=== PATIENT | female | born 1955 | race Caucasian/White ===

== ENCOUNTER → 2017-07-31 09:21 | Outpatient (CLI) | payer OTHER, SELFPAY ==
[2017-07-31 10:04] LABS: Absolute Lymphocyte Count 1.24 X10^3/ul (0.83-4.51); Absolute Neutrophil Count 4.6 X10^3/uL (2.0-7.7); Basophil# 0.03 X10^3/uL; Basophil% 0.4 % (0-1); Eosinophil# 0.12 X10^3/uL; Eosinophils% 1.8 % (0-5); Hematocrit 43.7 % (37-47); Hemoglobin 14.7 g/dl (12.0-15.0); Lymphocyte # 1.24 X10^3/ul (4.0); Lymphocyte % 18.3 % (19-41); Mean Corp Hgb Conc 33.6 g/gl (32-36); Mean Corpuscular Hgb 31.9 pg (27.0-32.0); Mean Corpuscular Volume 94.8 fL (81-99); Mean Platelet Vol. 9.1 fl (6.2-12.0); Monocyte# 0.76 X10^3/uL; Monocyte% 11.2 % (0-10); Neutrophil % 68.2 % (47-70); Platelet Count 266 K/mm3 (150-450); RBC Distribution Width CV 13.4 % (11.6-14.6); RBC Distribution Width SD 46.2 fl (35.1-43.9); Red Blood Count 4.61 M/mm3 (4.2-5.4); White Blood Count 6.8 K/mm3 (4.4-11.0)
[2017-07-31 10:05] LABS: POSITIVE COUNT NO; POSITIVE DIFFERENTIAL NO; POSITIVE MORPHOLOGY NO
[2017-07-31 10:30] LABS: AST(SGOT) 28 U/L (15-37); Alanine Aminotransfer ALT/SGPT 49 U/L (13-56); Albumin, Serum 3.7 g/dL (3.2-5.0); Alkaline Phosphatase 76 U/L (45-117); Anion Gap 9 (5-15); BUN 15 mg/dL (7-18); Calcium,Total 8.9 mg/dL (8.5-10.1); Chloride 106 mmol/L (98-107); Cholesterol 112 mg/dL (200); Creatinine, Serum 0.88 mg/dL (0.55-1.02); EST Glomerular Filtration Rate 69 mL/min (>60); Est Glom Filt Rate - Afr Amer 84 mL/min (>60); Globulin 3.7 g/dL (2.2-4.2); Glucose 86 mg/dL (70-110); High Density Lipoprotein 57 mg/dL; Potassium 4.1 mmol/L (3.5-5.1); Protein, Total 7.4 g/dL (6.4-8.2); Sodium Level 140 mmol/L (136-145); Thyroid Stim Hormone (TSH) 3.04 uIU/mL (0.358-3.74); Triglycerides 72 mg/dL; Very Low Density Lipoprotein 14 mg/dL (5-40)
== END ==
PROVIDERS: Family Provider Family Medicine; PCP Family Medicine; Visit Provider Family Medicine
DX: I25.10 Atherosclerotic heart disease of native coronary artery without angina pectoris (principal); I10 Essential (primary) hypertension; E78.5 Hyperlipidemia, unspecified
CPT/HCPCS: 36415; 80053; 80061; 84443; 85025

== ENCOUNTER 2019-03-09 20:25 | Emergency (ER) | payer OTHER, SELFPAY ==
[2019-03-09 20:26] VITALS: BP 151/76; PULSE 77; RESP 15; TEMP 36.9; O2SAT 97; BMI 34.4
--- NOTE | 2019-03-09 20:52 | RAD_ITS ---
STUDY: X-RAY - PELVIS AND RIGHT HIP REASON FOR EXAM: Female, 63 years old. STEPPED UP ONTO THE BLEACHER SHE PULLED SOMETHING IN HER RIGHT UPPER LEG. PAIN TECHNIQUE: 3 views of the pelvis and hip. COMPARISON: None. FINDINGS: There is a non-specific bowel gas pattern. Normal visualized soft tissue structures. Normal bilateral iliac wings, sacroiliac joints and visualized sacrum. Normal bilateral superior and inferior pubic rami. Normal pubic symphysis. Normal bilateral ischial tuberosities. Normal visualized femoral head. Normal acetabulum. Normal hip joint. RAD/HIP, UNI W/ Pelvis 2-3 Views IMPRESSION: No fracture or malalignment Electronically Signed: Steve Jasso MD ([place]) at 21:25 EDT , Service support ,
--- NOTE | 2019-03-09 20:55 | ED.VISSUMM ---
- ER Visit Summary Date of Service: 03/09/19 Chief Complaint: Right hip pain History of Present Illness: The patient is a 63 F who presents with right hip pain that began tonight. Patient states she was stepping up onto a bleacher when she felt pain in her right hip. Patient states she felt a popping sensation. Patient states she has been unable to bear weight since the injury. Patient states her pain improves with rest. Patient denies any paresthesias or weakness. Patient states pain radiates to her right thigh. Patient denies any paresthesias or weakness. Patient denies any calf pain. Physical Examination: Vital signs are stable. Patient is afebrile. Patient is in no acute distress. Musculoskeletal exam reveals tenderness over the anterior and lateral aspects of the right hip. There is no deformity noted. Range of motion was limited in internal and external rotation as well as some flexion to 30 degrees. Pedal pulses are equal bilaterally. There is no knee pain. Heart was regular rate and rhythm. Lungs are clear and equal bilaterally. Abdomen is soft and nontender. Test Results: X-rays of the right hip were obtained. There is no acute fracture. These were interpreted by myself and the radiologist. Emergency Department Course and Treatment: Patient declined analgesics at this time. Patient was given a walker. Patient was instructed to ice and elevate the right hip. Patient was given a prescription for meloxicam. Patient was instructed to follow-up with her primary care physician in 5 to 7 days. Patient and family understood and were agreeable with the plan. All questions were answered. Disposition: Discharge home Impression: Right hip strain This note was generated with [employer] dictation software. It may contain incorrect words, spelling, and punctuation that were not noted in review of the chart prior to signing ED Disposition - Plan for ED Patient: Disposition: Home or Assisted Living Diagnosis: Strain of muscle of right hip Instructions: Hip Strain Prescriptions: Meloxicam 15 mg PO DAILY PRN PRN #10 tab PRN Reason: Pain Transmission Status: Pending to [facility]/pharmacy #[id number] Referrals: Alvaro Calhoun MD [Primary Care Provider] -
[2019-03-09 22:45] VITALS: BP 145/75; PULSE 72; RESP 16; O2SAT 96
== END 2019-03-09 22:46 | disposition home or self-care (01) ==
PROVIDERS: Emergency Provider Emergency Medicine; Family Provider Family Medicine; PCP Family Medicine
DX: S76.011A Strain of muscle, fascia and tendon of right hip, initial encounter (principal); X58.XXXA Exposure to other specified factors, initial encounter; Y93.9 Activity, unspecified; Y92.9 Unspecified place or not applicable; Y99.9 Unspecified external cause status; I25.10 Atherosclerotic heart disease of native coronary artery without angina pectoris; I10 Essential (primary) hypertension; Z95.5 Presence of coronary angioplasty implant and graft; Z79.82 Long term (current) use of aspirin; Z79.899 Other long term (current) drug therapy
CPT/HCPCS: 73502; 99282

== ENCOUNTER 2019-08-04 13:21 | Observation (INO) | payer OTHER, SELFPAY ==
[2019-08-04] VITALS (10 sets, daily range): BP systolic 124–167; BP diastolic 69–91; PULSE 70–92; RESP 15–17; TEMP 36.7–36.9; O2SAT 91–98; BMI 35.0; BMI 34.1
--- NOTE | 2019-08-04 14:11 | RAD_ITS ---
STUDY: X-RAY CHEST REASON FOR EXAM: Female, 64 years old. PATIENT REPORTS FEELING LIKE SHE WAS GOING TO PASS OUT. STATES SHE GETS SOB AT TIMES.. HX OF STENTS PER PATIENT. TECHNIQUE: Single AP portable view of the chest. COMPARISON: December 09, 2015 chest x-ray FINDINGS: The lungs are clear and expanded. There is no demonstrated pleural abnormality. There is borderline cardiomegaly. Normal mediastinum and anya. Normal visualized pulmonary arteries. Normal visualized aortic arch and descending thoracic aorta. There are diffuse degenerative changes of the visualized thoracic spine. Normal visualized ribs, clavicles, and shoulders. There is no demonstrated abnormality of the visualized soft tissue structures of the upper abdomen. RAD/Chest 1 View (Portable) IMPRESSION: Improved aeration, otherwise stable chest. Electronically Signed: Marlys Walden MD at 14:53 EST Tel , Service support ,
--- NOTE | 2019-08-04 14:11 | EKG12_ITS ---
Test Reason : Blood Pressure : / mmHG Vent. Rate : 081 BPM Atrial Rate : 081 BPM P-R Int : 232 ms QRS Dur : 080 ms QT Int : 384 ms P-R-T Axes : 025 -11 028 degrees QTc Int : 446 ms Sinus rhythm with 1st degree A-V block Cannot rule out Anterior infarct , age undetermined Abnormal ECG Confirmed by REVA SANFORD, KOREY ([id number]), copy editor ODALYS JACKSON ([id number]) on 08/06/2019 8:16:37 AM Referred By: Qi Valdez Confirmed By:KOREY ARDON MD
[2019-08-04] MEDS: Aspirin 81 MG TAB.CHEW 324 MG PO (14:32)
[2019-08-04 14:35] LABS: Absolute Lymphocyte Count 1.42 X10^3/uL (0.83-4.51); Absolute Neutrophil Count 7.2 X10^3/uL (2.0-7.7); Basophil# 0.06 X10^3/uL; Basophil% 0.6 % (0-1); Eosinophil# 0.14 X10^3/uL; Eosinophils% 1.4 % (0-5); Hematocrit 44.4 % (37-47); Hemoglobin 15.2 g/dL (12.0-15.0); Lymphocyte # 1.42 X10^3/ul (4.0); Lymphocyte % 14.7 % (19-41); Mean Corp Hgb Conc 34.2 g/dL (32-36); Mean Corpuscular Volume 93.5 fL (81-99); Monocyte# 0.81 X10^3/uL; Monocyte% 8.4 % (0-10); NRBC Flagged by Analyzer 0 % (0-5); Neutrophil % 74.6 % (47-70); Platelet Count 276 K/mm3 (150-450); RBC Distribution Width CV 12.7 % (11.6-14.6); RBC Distribution Width SD 43.7 fl (35.1-43.9); Red Blood Count 4.75 M/mm3 (4.2-5.4); White Blood Count 9.7 K/mm3 (4.4-11.0)
[2019-08-04 14:54] LABS: Anion Gap 8 (5-15); BUN 14 mg/dL (7-18); Calcium,Total 9.5 mg/dL (8.5-10.1); Chloride 109 mmol/L (98-107); Creatinine, Serum 0.94 mg/dL (0.55-1.02); EST Glomerular Filtration Rate 65 mL/min (>60); Est Glom Filt Rate - Afr Amer 78 mL/min (>60); Estimated Creatinine Clearance 60.34 ml/min; Glucose 94 mg/dL (74-106); Potassium 4.1 mmol/L (3.5-5.1); Sodium Level 142 mmol/L (136-145)
--- NOTE | 2019-08-04 15:01 | ED.VISSUMM ---
- ER Visit Summary Date of Service: 08/04/19 Chief Complaint: Chest pain exertional dyspnea History of Present Illness: The patient is a 64 F history of prior CAD with stent, hypertension high cholesterol. Patient cardiac stent was placed in 2016 at [facility]. She states the last 6 months she has had exertional dyspnea and now trouble walking steps. She had some intermittent atypical chest pain. No history of DVT or PE. No recent travel surgery or immobilization. No leg pain or swelling. Physical Examination: Older female currently no acute distress currently symptom-free pain-free. Vital signs are stable afebrile. Pulse ox 94% on room air no signs hypoxia. H EENT exam normal. Neck nontender. Lungs clear to auscultation bilaterally. Heart regular rhythm no murmur. Chest wall nontender. Abdomen soft nontender. Normal bowel sounds no peritoneal signs. Patient is moving all 4 extremities. Neurovascularly intact. Calves are nontender without edema or cords. Neurologically she is awake and alert with no focal motor deficits. Test Results: Chest x-ray shows a normal cardiac silhouette mediastinum. EKG shows a sinus rhythm rate 81 with no acute signs of GA or ischemia. White count 9. Hemoglobin 15. Electrolytes unremarkable normal creatinine and gap. Troponin normal. Emergency Department Course and Treatment: Patient with concerning exertional dyspnea worsening over the last 6 months with atypical chest pain. Work-up is negative. Given her prior history of coronary disease with a stent. I think she needs to be admitted for stress testing. Treatment Plan: Hospitalist on page for admission Disposition: Admission Impression: Acute exertional dyspnea and atypical chest pain History of CAD with cardiac stent This note was generated with [employer] dictation software. It may contain incorrect words, spelling, and punctuation that were not noted in review of the chart prior to signing ED Disposition - Plan for ED Patient: Referrals: Alvaro Calhoun MD [Primary Care Provider] -
--- NOTE | 2019-08-04 15:24 | PCM.HP.STD ---
Problem List (1) Hypertension Status: Chronic (2) Hyperlipidemia Status: Chronic (3) Stented coronary artery Status: Chronic Comment: PTCA and WISAM to mid RCA (4mm X 33 mm Xience Alpine RX WISAM) per Dr. Carrizales @ [facility] (4) Atherosclerotic heart disease of [place] coronary artery without angina pectoris Status: Chronic History of Present Illness Date of Admission: 08/04/19 Chief Complaint: Dyspnea with exertion, chest pain. The patient is a 64 year old F who presents emergency room due to dyspnea with exertion and chest pain. Patient states for the last several months she has had dyspnea with exertion as well as intermittent chest soreness. Patient reports this has been worsening over the past week and even more so over the past few days. Patient states she had a stent placed 4-1/2 years ago and her symptoms feel similar to symptoms she had prior to stent. She reports stent was placed at outside facility and she was told there was another area that needed stenting however was difficult to get to. She previously followed with Dr. Min however admits she has not followed routinely with cardiology recently. Patient also reports some discomfort in her left elbow which she has not sure is related to other presenting symptoms. Patient's past medical history includes CAD with history of stents, hypertension, hyperlipidemia. Past Medical History Past Medical History (Chronic Problems): Chronic Problems (Last Updated 11/15/17 @ 20:15 by Melanie Johnson) Hypertension (Chronic) Hyperlipidemia (Chronic) Stented coronary artery (Chronic 12/10/15) PTCA and WISAM to mid RCA (4mm X 33 mm Xience Alpine RX WISAM) per Dr. Carrizales @ [facility] Atherosclerotic heart disease of [place] coronary artery without angina pectoris (Chronic) Medical History: Medical History (Last Updated 11/15/17 @ 20:15 by Melanie Johnson) Hypertension (Chronic) I10 Hyperlipidemia (Chronic) E78.5 Atherosclerotic heart disease of [place] coronary artery without angina pectoris (Chronic) I25.10 Allergies No Known Drug Allergies Allergy (Mild, Verified 08/04/19 13:22) none Seasonal allergies Allergy (Intermediate, Uncoded 08/04/19 13:22) sinus problems Home Medications: Ambulatory Orders Medication Instructions Recorded Aspirin [Adult Low Dose Aspirin EC] 81 mg PO DAILY 02/09/16 Atorvastatin Calcium [Lipitor] 40 mg PO QHS 02/09/16 Ubidecarenone [Co Q-10] 100 mg PO DAILY 02/09/16 diltiazem HCl 120 mg 120 mg PO DAILY #30 tab 09/28/18 tablet,extended release 24 hr ticagrelor 90 mg tablet See Rx Instructions .ROUTE 12/26/18 .COMPLEX #60 tablet [place]-3 Fatty Acids [Fish Oil] 500 mg PO DAILY 08/04/19 Surgical History: Surgical History (Last Updated 11/15/17 @ 20:15 by Melanie Johnson) Stented coronary artery (Chronic) Onset Date: 12/10/15 Z95.5 PTCA and WISAM to mid RCA (4mm X 33 mm Xience Alpine RX WISAM) per Dr. Carrizales @ [facility] History of tubal ligation Z98.51 Surgical History: - - tubal ligation in 1990, cardiac stent. Psychiatric History: No pertinent psych hx [employer] History: No pertinent [employer] history Lives: Spouse/ Significant Other Smoking Status: Never smoker Alcohol: None Drugs: None - *Family History Maternal Family History: Family History (Last Reviewed 08/04/19 @ 15:37 by SHANNEN Haji) Father CVA (cerebral vascular accident) Myocardial infarction CAD (coronary artery disease) Mother Arrhythmia Paternal Family History: Family History (Last Reviewed 08/04/19 @ 15:37 by SHANNEN Haji) Father CVA (cerebral vascular accident) Myocardial infarction CAD (coronary artery disease) Mother Arrhythmia Review of Systems Constitutional: Denies: Chills, Fever, Weight Change HEENT: Denies: Head Aches, Sinus Congestion, Sinus Drainage Cardiovascular: Reports: Chest Pain. Denies: Light Headedness, Palpitations, Syncope Respiratory: Reports: Shortness of breath upon exertion. Denies: Cough Gastrointestinal: Denies: Abdominal Pain, Nausea, Vomiting Genitourinary: Denies: Dysuria Musculoskeletal: Denies: Joint Pain, Joint Tenderness Skin: Denies: Rash, Wounds Neurological: Denies: Numbness, Tingling, Focal weakness Psychiatric: Denies: Anxiety, Depression, Homicidal Ideations, Suicidal Ideations Hematologic/ Lymphatic: Denies: Easy Bruising, Easy Bleeding VTE Information - Inpt Only VTE Present on Admission: No VTE Mechan Device Prophylaxis: None VTE Pharm Prophylaxis ordered?: Yes - Physical Exam Vitals/I&O's: Vital Signs Temp Pulse Resp BP Pulse Ox 98.1 F 92 16 167/91 H 94 08/04/19 13:22 08/04/19 14:33 08/04/19 14:33 08/04/19 13:22 08/04/19 14:33 Oxygen Delivery Method Room Air Weight: 223 lb 15.834 oz Body Mass Index (BMI) 35.0 General: Alert, Oriented x3, Cooperative HEENT: Atraumatic, PERRLA, EOMI, Normocephalic Neck: Supple, No JVD, Negative Carotid Bruits Lungs: Clear to auscultation, Normal air movement Cardiovascular: Regular rate, Regular Rhythm, Normal S1, Normal S2, No murmurs Abdomen: Bowel Sounds Present, Soft, Non Tender, Non-Distended Extremities: No clubbing, No cyanosis, No edema, Capillary Refill Less than 3 Seconds Skin: No rashes, No breakdown Musculoskeletal: No Tenderness to Palpation of Joints or Extremities Neurological: Cranial nerves II-XII grossly intact, Neuro grossly intact Psych/Mental Status: Normal Affect, Appropriate Laboratory Results 08/04/19 14:23: WBC 9.7, RBC 4.75, Hgb 15.2 H, Hct 44.4, MCV 93.5, MCH 32.0, MCHC 34.2, RDW Std Deviation 43.7, RDW Coeff of Danielle 12.7, Plt Count 276, MPV 9.0, Immature Gran % (Auto) 0.300, Neut % (Auto) 74.6 H, Lymph % (Auto) 14.7 L, [place] % (Auto) 8.4, Eos % (Auto) 1.4, Baso % (Auto) 0.6, Absolute Neuts (auto) 7.2, Absolute Lymphs (auto) 1.42, Nucleated RBC % 0 08/04/19 14:23: Sodium 142, Potassium 4.1, Chloride 109 H, Carbon Dioxide 25.0, Anion Gap 8, BUN 14, Creatinine 0.94, Estim Creat Clear Calc 60.34, Est GFR (MDRD) Af Amer 78, Est GFR (MDRD) Non-Af 65, BUN/Creatinine Ratio 15.0, Glucose 94, Calcium 9.5, Troponin I < 0.015 Assessment/Plan 1. Chest pain with exertional dyspnea-rule out ACS. Trend enzymes. Consult cardiology for stress versus cath. Continue aspirin, statin, Brilinta. Prior cath 12/14/15 demonstrated: 1. Angiographically normal left main coronary artery. 2. Left circumflex artery with mild disease. 3. Right coronary artery with high-grade mid segment stenosis. 4. Left anterior descending artery with moderately severe mid segment disease. 2. CAD with history of stent-previously followed with Dr. Min however no recent follow-up. Continue aspirin, statin, Brilinta. 3. Hypertension-stable, continue diltiazem regimen. PRN hydralazine for systolic blood pressure greater than 160. 4. Hyperlipidemia- continue statin. DVT prophylaxis- Lovenox sc This patient was seen by SHANNEN Haji under the supervision of Dr. Valdez.
--- NOTE | 2019-08-04 15:43 | EKG12_ITS ---
Test Reason : CP Blood Pressure : / mmHG Vent. Rate : 072 BPM Atrial Rate : 072 BPM P-R Int : 234 ms QRS Dur : 078 ms QT Int : 418 ms P-R-T Axes : 020 -09 044 degrees QTc Int : 457 ms Sinus rhythm with 1st degree A-V block Otherwise normal ECG No previous ECGs available Confirmed by REVA SANFORD, KOREY ([id number]), pictures editor ODALYS JACKSON ([id number]) on 08/06/2019 8:52:23 AM Referred By: Qi Valdez Confirmed By:KOREY ARDON MD
--- NOTE | 2019-08-04 16:49 | CON.PCM_ITS ---
Problem List (1) Angina pectoris Status: Acute (2) CAD in [place] artery Status: Chronic (3) Stented coronary artery Status: Chronic Comment: PTCA and WISAM to mid RCA (4mm X 33 mm Xience Alpine RX WISAM) per Dr. Carrizales @ [facility] (4) Hyperlipidemia Status: Chronic (5) Hypertension Status: Chronic Reason for Consult Date of Consultation: 08/04/19 History of Present Illness: The patient is a 64 year old white female with a past medical history which has included hyperlipidemia, hypertension, CAD, status post RCA PTCA/WISAM-2015, who presents for evaluation of chest discomfort concerning for worsening angina pectoris. She states that since her last outpatient cardiovascular follow-up in 2017 she felt that she was doing well and could continue to follow with her PCP. However she notes that for some time now she has been having worsening symptoms with respect to her chest discomfort and dyspnea on exertion. She notes more recently the symptoms have been occurring on a daily basis and also occurring at rest. She states she feels soreness across the top of her chest and occasionally up in her jaw area and down her left upper extremity involving her left elbow and left wrist. She notes these symptoms were similar to the symptoms she had prior to her PCI procedure. She is also been noticing shortness of breath and dyspnea with exertion. There has been no obvious orthopnea or PND or peripheral pitting edema. There has been no near syncope or syncope. She states she has remained on her medications. She has not had any other cardiovascular testing performed. She elected to present to the [facility] emergency department this day because of her ongoing symptoms and concerns. Her initial troponin I level was negative. Her initial ECG did not demonstrate any acute ECG changes. The patient reported she had additional CAD findings in her LAD distribution that she was to return for an elective procedure/PCI in 2016 and she chose not to at that time. Cardiology was consulted to evaluate the patient for consideration for repeat diagnostic cardiac catheterization. [] Past Medical History Allergies/Adverse Reactions: Allergies No Known Drug Allergies Allergy (Mild, Verified 08/04/19 13:22) none Seasonal allergies Allergy (Intermediate, Uncoded 08/04/19 13:22) sinus problems Home Medications: Ambulatory Orders Medication Instructions Recorded Aspirin [Adult Low Dose Aspirin EC] 81 mg PO DAILY 02/09/16 Atorvastatin Calcium [Lipitor] 40 mg PO QHS 02/09/16 Ubidecarenone [Co Q-10] 100 mg PO DAILY 02/09/16 diltiazem HCl 120 mg 120 mg PO DAILY #30 tab 09/28/18 tablet,extended release 24 hr ticagrelor 90 mg tablet See Rx Instructions .ROUTE 12/26/18 .COMPLEX #60 tablet [place]-3 Fatty Acids [Fish Oil] 500 mg PO DAILY 08/04/19 Past Medical History (Chronic Problems): Chronic Problems (Last Updated 11/15/17 @ 20:15 by Melanie Johnson) CAD in [place] artery (Chronic) Hypertension (Chronic) Hyperlipidemia (Chronic) Stented coronary artery (Chronic 12/10/15) PTCA and WISAM to mid RCA (4mm X 33 mm Xience Alpine RX WISAM) per Dr. Carrizales @ [facility] Atherosclerotic heart disease of [place] coronary artery without angina pectoris (Chronic) Surgical History: - - tubal ligation in 1990, cardiac stent. 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 - *Family History Maternal Family History: Family History (Last Reviewed 08/04/19 @ 15:37 by SHANNEN Haji) Father CVA (cerebral vascular accident) Myocardial infarction CAD (coronary artery disease) Mother Arrhythmia Paternal Family History: Family History (Last Reviewed 08/04/19 @ 15:37 by SHANNEN Haji) Father CVA (cerebral vascular accident) Myocardial infarction CAD (coronary artery disease) Mother Arrhythmia Lives: Spouse/ Significant Other Smoking Status: Never smoker Alcohol: None Drugs: None Review of Systems - Review of Systems General: Denies: Fever, Night Sweats, Fatigue Cardiovascular: Denies: Chest Discomfort, Shortness of Breath, Orthopnea, PND, Peripheral Edema, Palpitations, Lightheadedness, Dizziness, Near Syncope, Syncope Respiratory: Denies: Cough, Sputum Production, Hemoptysis Gastrointestinal: Denies: Hematemesis, Hematochezia, Melena Genitourinary: Denies: Dysuria, Hematuria Skin: Denies: Rash Subjectve: This is a 64-year-old white female who appears to be resting comfortably at the moment in no acute distress. Objective: Vital Signs Temp Pulse Resp BP Pulse Ox 98.1 F 72 17 124/91 H 93 08/04/19 13:22 08/04/19 15:28 08/04/19 15:28 08/04/19 15:28 08/04/19 15:28 Oxygen Delivery Method Room Air Weight: 217 lb 13.067 oz Body Mass Index (BMI) 34.1 General: Awake, Alert, Oriented x 3, Cooperative, No Acute Distress HEENT: Atraumatic, Normocephalic, PERRL, EOMI, Sclera Non Icteric Oral: Moist Mucosa Neck: Supple, Good ROM, No JVD Lungs: Clear to auscultation Cardiovascular: Regular Rhythm, Normal S1, Normal S2 Vascular: Hayden Carotid Artery Bruits Abdomen: Bowel Sounds Present, Soft, Non Tender Extremities: No Cyanosis, No Clubbing, No edema Neurological: No Focal Motor or Sensory Deficit Psych/Mental Status: Appropriate 08/04/19 14:23: WBC 9.7, RBC 4.75, Hgb 15.2 H, Hct 44.4, MCV 93.5, MCH 32.0, MCHC 34.2, Plt Count 276, MPV 9.0, Immature Gran % (Auto) 0.300, Neut % (Auto) 74.6 H, Lymph % (Auto) 14.7 L, Major % (Auto) 8.4, Eos % (Auto) 1.4, Baso % (Auto) 0.6, Absolute Neuts (auto) 7.2, Nucleated RBC % 0 08/04/19 14:23: Sodium 142, Potassium 4.1, Chloride 109 H, Carbon Dioxide 25.0, Anion Gap 8, BUN 14, Creatinine 0.94, Est GFR (MDRD) Af Amer 78, Est GFR (MDRD) Non-Af 65, BUN/Creatinine Ratio 15.0, Glucose 94, Calcium 9.5, Troponin I < 0.015 Rhythm: Sinus rhythm EKG: Sinus rhythm; first-degree block; poor R wave progression; anterior minor indeterminate age cannot be excluded ECHO: 11-04-15 Interpretation Summary Moderate concentric left ventricular hypertrophy. The estimated ejection fraction is 65-70 %. Normal diastology for age. Right ventricular systolic pressure estimated to be 26 mmHg. There is no comparison study available. Stress Test: 01-20-2016 Interpretation Summary The estimated ejection fraction is 65 %. Normal adequate treadmill echocardiogram. Negative for ischemia by ECG and ECHO criteria. No anginal symptoms noted. No arrhythmias noted. Test terminated as pt was unable to mechanically keep up with treadmill, as well as dyspnea. Appropriate BP response to exercise. Poor exercise capacity for age. Final LVEF=70%. Consider alternative mode of testing if clinically indicated to evaluate LAD territory. Cardiac Cath: DATE OF SERVICE: 12/10/2015 PROCEDURES: 1. Left heart catheterization. 2. Left ventriculography. 3. Selective coronary angiography. The patient is a 60-year-old lady with a history of chest pain. The present cardiac catheterization is being undertaken to assess anatomy and to guide therapy. DESCRIPTION OF PROCEDURE: After informed consent was obtained, 1% Xylocaine was used to anesthetize the right radial area. A 5-[place] Terumo sheath was placed without difficulty and the side port flushed. A 5-[place] JL3.5 catheter was advanced to ascending aorta, flushed and pressures recorded. Left coronary ostium was identified and engaged. Left coronary angiography performed in multiple views. Following this, the catheter was removed and a 5-[place] 3DRC catheter was inserted. The right coronary ostium was identified and engaged. Right coronary angiography performed in multiple views. Following this, the catheter was removed and a pigtail catheter was inserted. Left ventriculogram was performed with 36 mL of contrast at 12 mL per second. Following this, all catheters were removed. The sheath was removed, a TR band was applied. The patient had been administered 2500 units of intravenous heparin and intra-arterial cocktail after the sheath had been placed. HEMODYNAMICS: The baseline heart rate was noted to be 65 beats per minute. Aortic pressures were 117/69. Left ventricular pressure is 121/18. Post-angiogram left ventricular pressure is 131/20. Aortic pressure is 137/79. CORONARY ARTERIOGRAPHY: 1. LEFT MAIN: The left main coronary artery was noted to be angiographically normal. It bifurcated into left anterior descending artery and a left circumflex artery. No significant stenosis was noted in this vessel. 2. LEFT CIRCUMFLEX ARTERY: Left circumflex artery was a medium-sized vessel gave off a first small obtuse marginal branch with no high-grade stenosis. Second large obtuse marginal branch was also noted with no high-grade stenosis. The left circumflex artery then continued giving off a small posterolateral vessels. No high-grade stenosis was noted in this vessel. 3. LEFT ANTERIOR DESCENDING ARTERY: Left anterior descending artery was a medium-sized vessel. It was extensively calcified. There was a small first diagonal branch, a small septal underwriting manager branch. The vessel then continued and gave off another diagonal branch, which bifurcated. The mid LAD had a 90% stenotic lesion. 4. RIGHT CORONARY ARTERY: The right coronary artery was a large dominant vessel. It gave a sinoatrial branch, a conus branch and an acute marginal branch. In the mid segment was a long lesion of approximately 90%. The vessel continued distally giving off a posterior descending artery and a posterolateral vessel. No high-grade stenosis was noted in this vessel. Distally in the posterior descending artery was an area of approximately 50% stenosis. LEFT VENTRICULOGRAM: The left ventriculogram demonstrated overall preserved left ventricular systolic function, estimated ejection fraction of 65% to 70%. CONCLUSION: 1. Angiographically normal left main coronary artery. 2. Left circumflex artery with mild disease. 3. Right coronary artery with high-grade mid segment stenosis. 4. Left anterior descending artery with moderately severe mid segment disease. Based on the above angiographic findings, I would recommend staged angioplasty to the right coronary artery as well as the circumflex artery. PCI: 12-10-2015: [facility]: RCA PTCA/WISAM with a 4 mm x 33 mm Xience Alpine Rx WISAM to the mid RCA CXR: Preliminary evaluation: No acute cardiopulmonary disease process appreciated. Assessment/Plan 1. Angina pectoris: Worsening The patient has symptoms which she states are similar to the symptoms she had prior to her PCI. She notes that her symptoms have been getting worse over time. She is concerned they are related to her underlying CAD process. She has had no other explanation for them. Thus far her cardiac enzymes have been negative. Her ECG has demonstrated no acute ECG changes. Her previous noninvasive and invasive studies were reviewed. She does have LAD disease which was not intervened on. At the present time she will continue medical management. This will include her aspirin and antiplatelet therapy. She will receive nitrates as needed. She can be placed on beta-blockers with adjustment as deemed appropriate. She will continue lipid-lowering therapy. She will be considered for reevaluation in the cardiac catheterization lab oratory. The procedure and risks have been discussed with her and she is agreeable to this approach. 2. CAD status post PCI The patient does have a history of CAD as previously described. She is undergone RCA PCI. According to the notes from [facility] she was recommended for a staged procedure to the LAD. She did not have that performed. At the moment she will continue medical management with adjustment as needed. She will continue to be followed noninvasively. She will be tentatively scheduled for reevaluation in the cardiac catheterization laboratory. 3. Hyperlipidemia She will continue lipid-lowering therapy. 4. Hypertension Her blood pressure will be followed. Her medicines can be adjusted as needed. Comment: The patient's case was discussed with the patient, her multiple family members present, and the [facility] staff. This note was generated using a voice recognition system and there may be incorrect words, spelling or punctuation that were not noted when reviewing the office note prior to saving.
[2019-08-04] MEDS: Enoxaparin 100 MG/ML Syringe SC (18:34)
[2019-08-04] MEDS: TICAGRELOR 90 MG TABLET PO (22:10)
[2019-08-04] MEDS: Atorvastatin Calcium 40 MG Tablet PO (22:10)
[2019-08-04] MEDS: Metoprolol Tartrate 25 MG Tablet PO (22:10)
[2019-08-05] VITALS (17 sets, daily range): BP systolic 102–130; BP diastolic 60–80; PULSE 58–65; RESP 15–18; TEMP 36.7; O2SAT 93–96
[2019-08-05 05:41] LABS: Cholesterol 112 mg/dL (200); High Density Lipoprotein 48 mg/dL; Triglycerides 98 mg/dL; Very Low Density Lipoprotein 20 mg/dL (5-40)
--- NOTE | 2019-08-05 05:55 | EKG12_ITS ---
Test Reason : AM EKG Blood Pressure : / mmHG Vent. Rate : 059 BPM Atrial Rate : 059 BPM P-R Int : 230 ms QRS Dur : 080 ms QT Int : 458 ms P-R-T Axes : 040 -03 034 degrees QTc Int : 453 ms Sinus bradycardia with 1st degree A-V block Low voltage QRS Inferior infarct , age undetermined Abnormal ECG When compared with ECG of 04-AUG-2019 14:27, MANUAL COMPARISON REQUIRED, DATA IS UNCONFIRMED Confirmed by REVA SANFORD, KOREY ([id number]), purchasing expeditor ODALYS JACKSON ([id number]) on 08/06/2019 8:38:48 AM Referred By: Qi Valdez Confirmed By:KOREY ARDON MD
[2019-08-05] MEDS: Aspirin E.C. 81 MG Tablet PO (06:35)
[2019-08-05] MEDS: TICAGRELOR 90 MG TABLET PO (06:35)
[2019-08-05] MEDS: Metoprolol Tartrate 25 MG Tablet PO (06:35)
[2019-08-05] MEDS: 0.9% Saline Lock 10 ML Syringe IV (06:36)
[2019-08-05] MEDS: dilTIAZem CD 120 MG Capsule PO (06:36)
[2019-08-05] MEDS: 0.9% Normal Saline 1,000 ML 15 ML IV (06:42)
[2019-08-05 07:07] LABS: Color, Urine Yellow (Yellow); Glucose, Dipstick Normal (Normal); Ketone-Dipstick Negative (Negative); Leukocyte Esterase-Dipstick Negative /ul (Negative); Nitrite-Dipstick Negative (Negative); Occult Blood-Urine Negative /ul (Negative); Protein-Dipstick Negative (Negative); Urine Bilirubin Dipstick Negative (Negative); Urine Clarity Clear (Clear); Urine Urobilinogen Normal (Normal)
--- NOTE | 2019-08-05 07:30 | ECHOD_ITS ---
Reason For Study: Chest Pain Procedure This was a 2D Doppler, Color Flow transthoracic echocardiogram. Exam performed portable in patient room. Left Ventricle Moderate assymetric septal hypertrophy. The estimated ejection fraction is 65-70 %. Normal diastology for age. No regional wall motion abnormalities noted. Right Ventricle Normal size and thickness. Normal systolic function. Atria Normal left atrium. Normal right atrium. Normal atrial septum. Mitral Valve The mitral valve is structurally normal. No prolapse or stenosis seen. Tricuspid Valve Normal tricuspid valve. Mild (1+) tricuspid valve insufficiency. Right ventricular systolic pressure estimated to be 22 mmHg. Aortic Valve Normal aortic valve. Trisinus/trileaflet aortic valve. Pulmonic Valve Normal pulmonic valve. Trivial pulmonic valve insufficiency. Great Vessels Normal aortic root. Normal arch. Normal inferior vena cava. Inferior vena cava collapse with sniff. Pericardium/Pleural No pericardial effusion. MMode/2D Measurements & Calculations LVIDd: 3.8 cm IVSd: 1.5 cm Ao root diam: 3.8 cm LVIDs: 2.0 cm LVPWd: 1.1 cm LA dimension: 3.5 cm FS: 47.3 % LAV(MOD-bp): 47.9 ml LA A4 area: 16.7 cm2 RA A4 area: 14.2 cm2 LAV(MOD-bp) Indexed: 22.9 ml/m2 LAV(MOD-sp2): 53.0 ml LAV(MOD-sp4): 42.0 ml Time Measurements MV dec time: 0.20 sec Doppler Measurements & Calculations MV E max randy: 73.3 cm/sec Lat Peak E' Randy: 11.2 cm/sec Med Peak E' Randy: 8.0 cm/sec MV A max randy: 79.6 cm/sec E/E' lat: 6.6 E/E' med: 9.2 MV E/A: 0.92 MV V2 max: 100.4 cm/sec MV P1/2t max randy: 100.4 cm/sec Ao V2 max: 102.1 cm/sec MV max P.0 mmHg MV P1/2t: 50.6 msec Ao max P.2 mmHg MV V2 mean: 47.9 cm/sec MV dec slope: 581.1 cm/sec2 Ao V2 mean: 84.6 cm/sec MV mean P.1 mmHg MVA(P1/2t): 4.3 cm2 Ao mean P.1 mmHg MV V2 VTI: 28.1 cm Ao V2 VTI: 26.1 cm LV V1 max: 94.7 cm/sec PA V2 max: 77.0 cm/sec PI end-d randy: 90.6 cm/sec LV V1 max P.6 mmHg LV V1 mean P.2 mmHg LV V1 mean: 70.5 cm/sec LV V1 VTI: 24.0 cm TR max randy: 203.6 cm/sec TR max P.6 mmHg Interpretation Summary The estimated ejection fraction is 65-70 %. Moderate assymetric septal hypertrophy without evidence of RAMILA. Normal diastology for age. Mild (1+) tricuspid valve insufficiency. Right ventricular systolic pressure estimated to be 22 mmHg. Compared to echo report dated 11/04/2015, no appreciable changes noted. Ordering Physician: Ranjan Min Referring Physician: Qi Valdez Performed By: Raymond Randall RCS
--- NOTE | 2019-08-05 07:43 | CL.D_ITS ---
Patient Name: VIRI BONNER Study Date: 08/05/2019 Performing: Ranjan Min MD Ht: 66.92 inches 170 cm : 1955 Wt: 218.26 lbs 99 kg Age: 64 Gender: female BSA: 2.1 PROCEDURE(S) PERFORMED [id number]/LV CLINICAL PROFILE AND INDICATIONS Indications: New Onset Angina <= 2 months, Stable Known CAD Heart Failure: None Stress/Imaging Stress/Image Study Performed: No Angina Classification Anginal Classification w/in 2 Weeks: CCS IV CAD Presentations: Unstable angina. Other: Dyspnea on exertion Comorbidities/Risk Factors: Hypertension Dyslipidemia Prior PCI CONCLUSIONS Normal LV size, wall motion,and systolic function Perserved Left Ventricular systolic function with normal EDP LVEF: by LV gram 65 % Non obstructive coronary arteries Possibly significant proximal and mid LAD in a small, 2.0 mm vessel, with mild to moderate proximal c alcification. RECOMMENDATIONS Management as per referring Mandarin Chinese Teacher Modified Jose protocol stress echo in 2 weeks to eval LAD and PDA territory. Obtain 2D echo to eval pulmonary pressures given SALMON. Sleep study as an outpt to eval for LORENE. Manual sheath removal. DESCRIPTION OF PROCEDURE The patient arrived to the procedure lab. The risks and benefits of the procedure as well as a full d escription of our services here and current unavailability of surgical backup were fully explained to the patient and/or their significant other prior to the catheterization. The Timeout was completed, verifying the correct patient and procedure. The patient's procedural site was prepped and draped in the usual fashion. Local anesthetic was given subcutaneously to right groin region with Lidocaine 2%. Using a modified Seldinger technique, arterial access was obtained via the right femoral artery, a 4 Fr sheath was inserted Left Coronary Artery selective angiography was performed in multiple views us ing a 4 Fr. JL5 catheter. Right Coronary Artery selective angiography was then performed in multiple views using a 4 Fr. 3DRC catheter. Left Ventriculography was performed in MARSHALL projection using a 4 Fr . Pigtail catheter. LV to AO pullback pressures were then recorded.The arterial sheath was pulled and manual compression applied until hemostasis is achieved. CORONARY ANGIOGRAPHY DOMINANCE: Right Dominant LEFT HEART ASSESSMENT Left Ventricular Ejection Fraction: by LV Gram 65 % Normal LV wall motion Normal Left Ventricular systolic function Normal Left Ventricular End Diastolic Pressure LEFT MAIN: Angiographically normal LEFT ANTERIOR DESCENDING ARTERY: PROX LAD: Moderate luminal irregularities up to 50%, Mild calcification MID LAD: Moderate luminal irregularities up to 50% CIRCUMFLEX ARTERY: Mild luminal irregularities less than 30% OM 1: Proximal - Moderate luminal irregularities up to 50% RIGHT CORONARY ARTERY: MID RCA: Previously placed stent is patent RT PDA: Ostial - Moderate luminal irregularities up to 50% COMPLICATIONS No Complications PROCEDURE MEDICATIONS Oxygen: 2 L/min via nasal cannula SUMMARY OF HEMODYNAMIC DATA Time AIR REST ECG 06:59:28 AO 134/74 (95) SA 07:16:24 LV 139/-14, 4 07:22:10 LV 119/-7, 13 07:22:17 LVp 139/-13, 11 07:22:24 AOp 136/66 (94) 07:22:29 Signed By Ranjan Min MD On 08/05/2019 07:42:33 Ranjan Min MD
[2019-08-05] MEDS: Losartan Potassium 25 MG Tablet PO (08:54)
--- NOTE | 2019-08-05 11:39 | PCM.DC ---
- Discharge Diagnoses Current Active Problems: Current Active and Chronic Problems (Last Updated 11/15/17 @ 20:15 by Melanie Johnson) Angina pectoris (Acute) CAD in [place] artery (Chronic) You will use the following diet at home:: Cardiac Discharge Activity: Return to Normal Activity Call your doctor if you observe: Shortness of breath, Dizziness, Fainting spells, Chest pain Additional Instructions: Recommend sleep study to evaluate for obstructive sleep apnea- this can be ordered by primary care physician. Allergies/Adverse Reactions: Allergies No Known Drug Allergies Allergy (Mild, Verified 08/04/19 13:22) none Seasonal allergies Allergy (Intermediate, Uncoded 08/04/19 13:22) sinus problems Medications to take at Discharge Aspirin [Adult Low Dose Aspirin EC] 81 mg PO DAILY 02/09/16 Atorvastatin Calcium [Lipitor] 40 mg PO QHS 02/09/16 Ubidecarenone [Co Q-10] 100 mg PO DAILY 02/09/16 diltiazem HCl 120 mg tablet,extended release 24 hr 120 mg PO DAILY #30 tab 09/28/18 ticagrelor 90 mg tablet See Rx Instructions .ROUTE .COMPLEX #60 tablet 12/26/18 [place]-3 Fatty Acids [Fish Oil] 500 mg PO DAILY 08/04/19 Losartan Potassium [Cozaar] 25 mg PO DAILY #30 tab 08/05/19 Metoprolol Tartrate [Lopressor (beta althea)] 25 mg PO BID #60 tab 08/05/19 The following prescriptions were given: Losartan Potassium [Cozaar] 25 mg PO DAILY #30 tab Transmission Status: Pending to [id number] Metoprolol Tartrate [Lopressor (beta althea)] 25 mg PO BID #60 tab Transmission Status: Pending to [id number] Primary Care Physician: Alvaro Calhoun MD [Primary Care Provider] - Please follow up with your Primary Care Physician in: 1 Week Test Results: Test results from this visit will be discussed in further detail at your follow-up appointment, if applicable. Please Follow Up With: Ranjan Min MD When: Stress echo in 2 weeks, follow-up with cardiology following stress test Proposed Discharge Date: 08/05/19
--- NOTE | 2019-08-05 11:45 | NURSING ---
This RN walked the pt in the halls. No signs of complications, bleeding or hematoma to right groin cath site.
--- NOTE | 2019-08-05 12:08 | PHA.DC.MC ---
Pharmacy Service has performed discharge medication reconciliation and counseling for this patient. 1. LOSARTAN 25MG PO DAILY 2. METOPROLOL TARTRATE 25MG PO BID The patient's discharge medication list was reviewed for discrepancies and discrepancies were resolved. Home Medications Aspirin [Adult Low Dose Aspirin EC] 81 mg PO DAILY 02/09/16 Atorvastatin Calcium [Lipitor] 40 mg PO QHS 02/09/16 Ubidecarenone [Co Q-10] 100 mg PO DAILY 02/09/16 diltiazem HCl 120 mg tablet,extended release 24 hr 120 mg PO DAILY #30 tab 09/28/18 ticagrelor 90 mg tablet See Rx Instructions .ROUTE .COMPLEX #60 tablet 12/26/18 [place]-3 Fatty Acids [Fish Oil] 500 mg PO DAILY 08/04/19 Losartan Potassium [Cozaar] 25 mg PO DAILY #30 tab 08/05/19 Metoprolol Tartrate [Lopressor (beta althea)] 25 mg PO BID #60 tab 08/05/19 The patient was counseled on the following discharge medications and changes in medications for homegoing were reviewed. The Reason for Use, instructions for use, and potential side effects were reviewed for all new medications. The patient's questions regarding all of their medications were answered. The patient was able to verbally demonstrate an understanding of their discharge medications.
--- NOTE | 2019-08-05 13:13 | PCM.DC.SUM ---
<Olivia Sharp - Last Filed: 08/05/19 13:21> Discharge Date and Diagnosis Date of Admission: 08/04/19 Date of Discharge: 08/05/19 - Primary Discharge Diagnosis Active and Suspected Problems (Last Updated 11/15/17 @ 20:15 by Melanie Johnson) 1. Dyspnea on exertion, chest pain-ACS ruled out 2. CAD with history of stent 3. Hypertension 4. Hyperlipidemia - Secondary Discharge Diagnosis Chronic Problems (Last Updated 11/15/17 @ 20:15 by Melanie Johnson) CAD in [place] artery (Chronic) Hypertension (Chronic) Hyperlipidemia (Chronic) Stented coronary artery (Chronic 12/10/15) PTCA and WISAM to mid RCA (4mm X 33 mm Xience Alpine RX WISAM) per Dr. Carrizales @ [facility] Atherosclerotic heart disease of [place] coronary artery without angina pectoris (Chronic) Hospital Course and Treatment Imaging Results: Diagnostic Data Chest X-Ray 08/04/19 14:11 IMPRESSION: Improved aeration, otherwise stable chest. Electronically Signed: Marlys Walden MD at 14:53 EST Tel , Service support , Dr. Frausto- Cardiology Operations: None Procedures: 2-D Echocardiogram, Cardiac catheterization Summary of Care Provided: The patient is a 64 year old F admitted 08/04/19 due to dyspnea with exertion and chest pain. 1. Chest pain with exertional dyspnea-ACS ruled out. Troponin negative. Cardiac catheterization demonstrated nonobstructive coronary arteries, possibly significant proximal and mid LAD small vessel with mild to moderate proximal calcification. Recommending modified Jose protocol stress echo in 2 weeks to evaluate to LAD and PDA. Continue aspirin, statin, Brilinta, metoprolol, losartan. Cardiology recommending outpatient sleep study which can be arranged by primary care provider. Follow-up with cardiology in 2 weeks. Echocardiogram completed, report pending and will be reviewed prior to discharge. 2. CAD with history of stent-continue outpatient follow-up with Dr. Min as noted above. Continue aspirin, statin, Brilinta, metoprolol, losartan. 3. Hypertension-stable, continue diltiazem regimen. Additionally started on metoprolol and losartan. 4. Hyperlipidemia- continue statin. General: Alert, Oriented x3, Cooperative HEENT: Atraumatic, PERRLA, EOMI, Normocephalic Neck: Supple, No JVD, Negative Carotid Bruits Lungs: Clear to auscultation, Normal air movement Cardiovascular: Regular rate, Regular Rhythm, Normal S1, Normal S2, No murmurs Abdomen: Bowel Sounds Present, Soft, Non Tender, Non-Distended Extremities: No clubbing, No cyanosis, No edema, Capillary Refill Less than 3 Seconds Skin: No rashes, No breakdown Musculoskeletal: No Tenderness to Palpation of Joints or Extremities Neurological: Cranial nerves II-XII grossly intact, Neuro grossly intact Psych/Mental Status: Normal Affect, Appropriate Patient seen and examined prior to discharge. Physical assessment as noted above. Patient is stable for discharge with follow up recommendations as noted above. This patient was seen by SHANNEN Haji under the supervision of Dr. Miranda. - Physical Exam Vitals/I&O's: Vital Signs Temp Pulse Resp BP Pulse Ox 98.0 F 62 18 102/63 94 08/05/19 11:00 08/05/19 11:00 08/05/19 11:00 08/05/19 11:08/05/19 11:00 Oxygen Delivery Method Room Air Weight: 217 lb 13.067 oz Body Mass Index (BMI) 34.1 Intake and Output for Last 24 Hours 08/03/19 08/04/19 08/05/19 23:59 23:59 23:59 Intake Total 720 / 970 375.75 / 375.75 Output Total 800 / 800 Balance 720 / 970 -424.25 / -424.25 Laboratory Results 08/04/19 14:23: WBC 9.7, RBC 4.75, Hgb 15.2 H, Hct 44.4, MCV 93.5, MCH 32.0, MCHC 34.2, RDW Std Deviation 43.7, RDW Coeff of Danielle 12.7, Plt Count 276, MPV 9.0, Immature Gran % (Auto) 0.300, Neut % (Auto) 74.6 H, Lymph % (Auto) 14.7 L, [place] % (Auto) 8.4, Eos % (Auto) 1.4, Baso % (Auto) 0.6, Absolute Neuts (auto) 7.2, Absolute Lymphs (auto) 1.42, Nucleated RBC % 0 08/04/19 14:23: Sodium 142, Potassium 4.1, Chloride 109 H, Carbon Dioxide 25.0, Anion Gap 8, BUN 14, Creatinine 0.94, Estim Creat Clear Calc 60.34, Est GFR (MDRD) Af Amer 78, Est GFR (MDRD) Non-Af 65, BUN/Creatinine Ratio 15.0, Glucose 94, Calcium 9.5, Troponin I < 0.015 08/04/19 17:36: Troponin I < 0.015 08/04/19 20:22: Troponin I < 0.015 08/05/19 04:55: Triglycerides 98, Cholesterol 112, LDL Cholesterol 44, VLDL Cholesterol 20, HDL Cholesterol 48 08/05/19 06:50: Urine Color Yellow, Urine Clarity Clear, Urine pH 6.0, Ur Specific [place] 1.010, Urine Protein Negative, Urine Glucose (UA) Normal, Urine Ketones Negative, Urine Occult Blood Negative, Urine Nitrite Negative, Urine Bilirubin Negative, Urine Urobilinogen Normal, Ur Leukocyte Esterase Negative Current Medications Acetaminophen (Tylenol) 650 mg PO Q6H PRN PRN PRN Reason: Pain Score 1-3/Temp > 100.7 F Aspirin (Ecotrin) 81 mg PO DAILY [facility] Last Admin: 08/05/19 06:35 Dose: 81 mg Documented by: Atorvastatin Calcium (Lipitor) 40 mg PO QHS [facility] Last Admin: 08/04/19 22:10 Dose: 40 mg Documented by: Diltiazem HCl (Cardizem Cd) 120 mg PO DAILY [facility] Last Admin: 08/05/19 06:36 Dose: 120 mg Documented by: Glucagon () 1 mg IM .X1 PRN PRN Reason: Hypoglycemia Heparin Sodium (Beef Lung) (Heparin 500 Unit/5 Ml (100/Ml)) 500 unit IV UD PRN PRN Reason: HEPARIN FLUSH Dextrose (Dextrose 10%-Water) 250 mls @ 999 mls/hr IV .Q16M PRN; Protocol PRN Reason: HYPOGLYCEMIA Sodium Chloride () 1,000 mls @ 0 mls/hr IV .Q0M [facility] Last Infusion: 08/05/19 08:25 Dose: Infused Documented by: Labetalol HCl (Trandate) 5 mg IV X1 PRN PRN Reason: SBP > 160 prior to sheath pull Stop: 08/07/19 07:29 Losartan Potassium (Cozaar) 25 mg PO DAILY [facility] Last Admin: 08/05/19 08:54 Dose: 25 mg Documented by: Metoprolol Tartrate (Lopressor (Beta Ray)) 25 mg PO BID [facility] Last Admin: 08/05/19 06:35 Dose: 25 mg Documented by: Nitroglycerin (Nitrostat) 0.4 mg SUBLINGUAL Q5M PRN PRN Reason: CHEST PAIN Ondansetron HCl (Zofran) 4 mg IV Q8H PRN PRN PRN Reason: NAUSEA/VOMITING Sodium Chloride () 10 - 40 ml IV UD PRN PRN Reason: SALINE FLUSH Last Admin: 08/05/19 06:36 Dose: 10 ml Documented by: Ticagrelor (Brilinta) 90 mg PO BID [facility] Last Admin: 08/05/19 06:35 Dose: 90 mg Documented by: Discharge Diet: Low fat/ Low Cholesterol Discharge Activity: Return to Normal Activity Call your doctor if you observe: Shortness of breath, Dizziness, Fainting spells, Chest pain Home Medications: Medications to take at Discharge Aspirin [Adult Low Dose Aspirin EC] 81 mg PO DAILY 02/09/16 Atorvastatin Calcium [Lipitor] 40 mg PO QHS 02/09/16 Ubidecarenone [Co Q-10] 100 mg PO DAILY 02/09/16 diltiazem HCl 120 mg tablet,extended release 24 hr 120 mg PO DAILY #30 tab 09/28/18 ticagrelor 90 mg tablet See Rx Instructions .ROUTE .COMPLEX #60 tablet 12/26/18 [place]-3 Fatty Acids [Fish Oil] 500 mg PO DAILY 08/04/19 Losartan Potassium [Cozaar] 25 mg PO DAILY #30 tab 08/05/19 Metoprolol Tartrate [Lopressor (beta ray)] 25 mg PO BID #60 tab 08/05/19 Following Prescrptions Were Given to Patient: Losartan Potassium [Cozaar] 25 mg PO DAILY #30 tab Transmission Status: Received by [id number] Metoprolol Tartrate [Lopressor (beta ray)] 25 mg PO BID #60 tab Transmission Status: Received by [id number] Primary Care Physician: Alvaro Calhoun MD [Primary Care Provider] - Please follow up with your Primary Care Physician in: 1 Week Please Follow Up With: Ranjan Min MD When: Stress echo in 2 weeks, follow-up with cardiology following stress test Disposition: Home Minutes spent on discharge:: 35 Patient Condition:: Stable Medical Necessity - Tobacco Use Smoking Status: Never smoker Meaningful Use Info Meaningful Use Diagnoses (Choose all that apply): None applicable <Daryn Miranda - Last Filed: 08/05/19 16:16> Discharge Date and Diagnosis - Secondary Discharge Diagnosis Chronic Problems (Last Updated 11/15/17 @ 20:15 by Melanie Johnson) CAD in [place] artery (Chronic) Hypertension (Chronic) Hyperlipidemia (Chronic) Stented coronary artery (Chronic 12/10/15) PTCA and WISAM to mid RCA (4mm X 33 mm Xience Alpine RX WISAM) per Dr. Carrizales @ [facility] Atherosclerotic heart disease of [place] coronary artery without angina pectoris (Chronic) Hospital Course and Treatment Imaging Results: 08/05/19 07:30 Echo Complete [ECHO] Routine Operations: None Procedures: 2-D Echocardiogram, Cardiac catheterization Summary of Care Provided: Patient seen and examined independently. Data reviewed. I agree with the above note by the nurse practitioner. The patient is a 64 year old F presents with dyspnea and chest pain. Patient underwent a cardiac catheterization today that showed nonobstructive coronary disease. Patient underwent echocardiogram, results which are pending. Recommend by cardiology that she have an outpatient polysomnogram as well as a stress echocardiogram to see if the LAD lesion would require intervention but nothing warranting intervention at this time. [] - Physical Exam Vitals/I&O's: Vital Signs Temp Pulse Resp BP Pulse Ox 36.7 C 61 18 111/60 93 08/05/19 14:30 08/05/19 14:51 08/05/19 14:30 08/05/19 14:30 08/05/19 14:30 Oxygen Delivery Method Room Air Weight: 98.8 kg Body Mass Index (BMI) 34.1 Intake and Output for Last 24 Hours 08/03/19 08/04/19 08/05/19 23:59 23:59 23:59 Intake Total 720 / 970 375.75 / 375.75 Output Total 800 / 800 Balance 720 / 970 -424.25 / -424.25 General: Alert, Cooperative, No apparent distress HEENT: Atraumatic, Normocephalic Oral: Moist Mucosa, No Gingival or Mucosal Lesions/ Ulcerations Neck: Trachea Midline Lungs: Clear to auscultation, Normal air movement Cardiovascular: Regular rate, Regular Rhythm, Normal S1, Normal S2, No murmurs Abdomen: Bowel Sounds Present, Soft, Non Tender, Non-Distended, No Hepato-splenomegaly Psych/Mental Status: Normal Affect, Appropriate Laboratory Results 08/04/19 17:36: Troponin I < 0.015 08/04/19 20:22: Troponin I < 0.015 08/05/19 04:55: Triglycerides 98, Cholesterol 112, LDL Cholesterol 44, VLDL Cholesterol 20, HDL Cholesterol 48 08/05/19 06:50: Urine Color Yellow, Urine Clarity Clear, Urine pH 6.0, Ur Specific [place] 1.010, Urine Protein Negative, Urine Glucose (UA) Normal, Urine Ketones Negative, Urine Occult Blood Negative, Urine Nitrite Negative, Urine Bilirubin Negative, Urine Urobilinogen Normal, Ur Leukocyte Esterase Negative Current Medications Acetaminophen (Tylenol) 650 mg PO Q6H PRN PRN PRN Reason: Pain Score 1-3/Temp > 100.7 F Aspirin (Ecotrin) 81 mg PO DAILY [facility] Last Admin: 08/05/19 06:35 Dose: 81 mg Documented by: Atorvastatin Calcium (Lipitor) 40 mg PO QHS [facility] Last Admin: 08/04/19 22:10 Dose: 40 mg Documented by: Diltiazem HCl (Cardizem Cd) 120 mg PO DAILY [facility] Last Admin: 08/05/19 06:36 Dose: 120 mg Documented by: Glucagon () 1 mg IM .X1 PRN PRN Reason: Hypoglycemia Heparin Sodium (Beef Lung) (Heparin 500 Unit/5 Ml (100/Ml)) 500 unit IV UD PRN PRN Reason: HEPARIN FLUSH Dextrose (Dextrose 10%-Water) 250 mls @ 999 mls/hr IV .Q16M PRN; Protocol PRN Reason: HYPOGLYCEMIA Sodium Chloride () 1,000 mls @ 0 mls/hr IV .Q0M [facility] Last Infusion: 08/05/19 08:25 Dose: Infused Documented by: Labetalol HCl (Trandate) 5 mg IV X1 PRN PRN Reason: SBP > 160 prior to sheath pull Stop: 08/07/19 07:29 Losartan Potassium (Cozaar) 25 mg PO DAILY [facility] Last Admin: 08/05/19 08:54 Dose: 25 mg Documented by: Metoprolol Tartrate (Lopressor (Beta Ray)) 25 mg PO BID [facility] Last Admin: 08/05/19 06:35 Dose: 25 mg Documented by: Nitroglycerin (Nitrostat) 0.4 mg SUBLINGUAL Q5M PRN PRN Reason: CHEST PAIN Ondansetron HCl (Zofran) 4 mg IV Q8H PRN PRN PRN Reason: NAUSEA/VOMITING Sodium Chloride () 10 - 40 ml IV UD PRN PRN Reason: SALINE FLUSH Last Admin: 08/05/19 06:36 Dose: 10 ml Documented by: Ticagrelor (Brilinta) 90 mg PO BID [facility] Last Admin: 08/05/19 06:35 Dose: 90 mg Documented by: Discharge Diet: Low fat/ Low Cholesterol Discharge Activity: Return to Normal Activity Disposition: Home Minutes spent on discharge:: 35 Patient Condition:: Stable Meaningful Use Info Meaningful Use Diagnoses (Choose all that apply): None applicable Code Visit OBSV E&M: 74079 Observation care discharge
== END 2019-08-05 11:39 | disposition home or self-care (01) ==
LOC: ED 15:14 → PCU 08-05 07:21
PROVIDERS: Nurse Practitioner Family; Admitting Provider Internal Medicine; Emergency Provider Emergency Medicine; PCP Family Medicine; Referring Provider Internal Medicine
DX: R07.89 Other chest pain (principal); I25.110 Atherosclerotic heart disease of native coronary artery with unstable angina pectoris; E78.5 Hyperlipidemia, unspecified; I10 Essential (primary) hypertension; Z95.5 Presence of coronary angioplasty implant and graft; Z79.899 Other long term (current) drug therapy; Z79.82 Long term (current) use of aspirin; R94.31 Abnormal electrocardiogram [ECG] [EKG]; I07.1 Rheumatic tricuspid insufficiency; I44.0 Atrioventricular block, first degree
CPT/HCPCS: 36415; 71045; 80048; 80061; 81002; 84484; 85025; 93005; 93306; 93458; 96372; 99218; 99285; J7030; Q9957; A4216; C1769; C1894; G0378; Q9967

== ENCOUNTER → 2019-08-19 10:17 | Outpatient (CLI) | payer OTHER, SELFPAY ==
[2019-08-04 16:17] VITALS: BMI 34.1
--- NOTE | 2019-08-19 10:22 | STE_ITS ---
Reason For Study: CAD/ASHD Stress Results Protocol: Modified Jose Protocol Maximum Predicted HR: 158 bpm Target HR: 134 bpm % Maximum Predicted HR: 85 % DurationHeart Rate Stage (mm:ss) (bpm) BP Comment BASELINE 63 130/82 STAGE 0 3:00 134 128/100 STAGE 1/2 0:18 134 / FATIGUE, SOB, LEGS TIRED RECOVERY 72 130/70 Stress Duration: 3:18 mm:ss Maximum Stress HR: 134 bpm Baseline Echocardiogram Findings The estimated ejection fraction is 65 %. Stress Echo Wall motion Data Resting WM Intermediate WM Stress WM Resting Wall Motion Wall Motion Stress No regional wall motion No regional wall motion abnormalities noted. abnormalities noted. EKG Data The baseline ECG displays normal sinus rhythm. The maximum heart rate attained was 134 beats per minute. This was 87% of maximum predicted heart rate. During stress, there were no ST or T wave changes noted to suggest ischemia. No clinical angina was noted. No arrhythmias noted. Interpretation Summary The estimated ejection fraction is 65 %. Normal, adequate, modified Jose treadmill echocardiogram. Negative for ischemia by EKG and echocardiographic criteria. No anginal symptoms noted. No arrhythmias noted. Test terminated due to the attainment of target heart rate, fatigue and dyspnea. Hypertensive blood pressure response to exercise. Poor exercise capacity for age. Final LVEF is 75%. Patient tolerated procedure well. No complications. Ordering Physician: Ranjan Min Referring Physician: Ranjan Min Performed By: Rosi Roberts, AYMINI, RVT
== END ==
PROVIDERS: PCP Family Medicine; Referring Provider Internal Medicine Cardiovascular Disease; Visit Provider Internal Medicine Cardiovascular Disease
DX: I25.119 Atherosclerotic heart disease of native coronary artery with unspecified angina pectoris (principal); Z95.5 Presence of coronary angioplasty implant and graft; I25.10 Atherosclerotic heart disease of native coronary artery without angina pectoris
CPT/HCPCS: 93017; 93350

== ENCOUNTER → 2020-09-07 12:11 | Outpatient (CLI) | payer SELFPAY ==
[2019-08-04 16:17] VITALS: BMI 34.1
[2020-09-07 15:26] LABS: Absolute Lymphocyte Count 1.51 X10^3/uL (0.83-4.51); Absolute Neutrophil Count 4.9 X10^3/uL (2.0-7.7); Basophil# 0.05 X10^3/uL; Basophil% 0.7 % (0-1); Eosinophil# 0.11 X10^3/uL; Eosinophils% 1.5 % (0-5); Hematocrit 44.4 % (37-47); Hemoglobin 14.4 g/dL (12.0-15.0); Lymphocyte # 1.51 X10^3/ul (4.0); Lymphocyte % 20.6 % (19-41); Mean Corp Hgb Conc 32.4 g/dL (32-36); Mean Corpuscular Hgb 31.4 pg (27.0-32.0); Mean Corpuscular Volume 96.7 fL (81-99); Monocyte# 0.78 X10^3/uL; Monocyte% 10.7 % (0-10); NRBC Flagged by Analyzer 0 % (0-5); Neutrophil # 4.85 X10^3/uL (2.7-7.7); Neutrophil % 66.2 % (47-70); Platelet Count 290 K/mm3 (150-450); RBC Distribution Width CV 12.8 % (11.6-14.6); Red Blood Count 4.59 M/mm3 (4.2-5.4); White Blood Count 7.3 K/mm3 (4.4-11.0)
[2020-09-07 15:52] LABS: AST(SGOT) 25 U/L (15-37); Alanine Aminotransfer ALT/SGPT 47 U/L (13-56); Albumin, Serum 3.7 g/dL (3.2-5.0); Alkaline Phosphatase 82 U/L (45-117); Anion Gap 7 (5-15); BUN 16 mg/dL (7-18); BUN/Creat Ratio 16.3 RATIO (10-20); Calcium,Total 9.5 mg/dL (8.5-10.1); Chloride 107 mmol/L (98-107); Cholesterol 130 mg/dL (200); Creatinine, Serum 0.98 mg/dL (0.55-1.02); EST Glomerular Filtration Rate 61 mL/min (>60); Est Glom Filt Rate - Afr Amer 74 mL/min (>60); Globulin 3.8 g/dL (2.2-4.2); Glucose 78 mg/dL (74-106); High Density Lipoprotein 48 mg/dL; Magnesium 2.1 mg/dL (1.6-2.6); Potassium 4.1 mmol/L (3.5-5.1); Protein, Total 7.5 g/dL (6.4-8.2); Sodium Level 140 mmol/L (136-145); T4 Free Direct 0.93 ng/dL (0.76-1.46); Thyroid Stim Hormone (TSH) 2.57 uIU/mL (0.358-3.74); Triglycerides 78 mg/dL; Very Low Density Lipoprotein 16 mg/dL (5-40)
[2020-09-07 16:10] LABS: BNP,B-Type NATRIURETIC PEPTIDE 30.1 pg/mL (0-100)
== END ==
PROVIDERS: PCP Family Medicine; Visit Provider Family Medicine
DX: I10 Essential (primary) hypertension (principal); E78.5 Hyperlipidemia, unspecified; I25.10 Atherosclerotic heart disease of native coronary artery without angina pectoris; R00.2 Palpitations; R06.00 Dyspnea, unspecified
CPT/HCPCS: 80053; 80061; 83735; 83880; 84439; 84443; 85025

== ENCOUNTER → 2020-11-02 20:20 | Outpatient (CLI) | payer SELFPAY ==
[2020-10-13 09:52] VITALS: BMI 37.8
== END ==
PROVIDERS: PCP Family Medicine; Visit Provider Nurse Practitioner Acute Care
DX: G47.33 Obstructive sleep apnea (adult) (pediatric) (principal)
CPT/HCPCS: 95811

== ENCOUNTER 2024-05-17 00:42 | Emergency (ER) | payer MEDICARE, SELFPAY ==
[2024-05-17 00:43] VITALS: BP 187/79; PULSE 72; RESP 18; TEMP 36.5; O2SAT 97; BMI 41.4
[2024-05-17] MEDS: Lidocaine 1% (20 ml mdv) 20 ML Vial 5 ML INFILT (01:10)
[2024-05-17 01:39] VITALS: BP 153/73; PULSE 65; RESP 16; TEMP 36.6; O2SAT 95
[2024-05-17] MEDS: Doxycycline 100 MG CAPSULE PO (01:47)
--- NOTE | 2024-05-17 01:54 | EX.ED.DYSGE1 ---
HPI History of Present Illness Chief Complaint: Wound Check Informant: patient Narrative Narrative: Patient presenting to the emergency department with a tick on the skin of the anterior proximal right thigh. She states she walked through some tall grass yesterday. She noticed it tonight was unable to get it off due to its location. She denies any systemic symptoms. [facility] Medical History Hypertension Hyperlipidemia Atherosclerotic heart disease of [place] coronary artery without angina pectoris Home Medications ?Medication ?Instructions ?Recorded ?Last Taken ?Type aspirin 81 mg tablet,delayed 81 mg PO DAILY [facility] 02/09/16 Unknown History release atorvastatin 40 mg tablet 40 mg PO QHS cholesterol 02/09/16 Unknown History coenzyme Q10 100 mg capsule 100 mg PO DAILY supplement 02/09/16 Unknown History diltiazem HCl 120 mg 120 mg PO DAILY #30 tabs 09/28/18 Unknown Rx tablet,extended release 24 hr metoprolol tartrate 25 mg tablet 25 mg PO BID #60 tabs 08/05/19 Unknown Rx doxycycline hyclate 100 mg capsule 100 mg PO DAILY #13 caps 05/17/24 Unknown Rx Allergy/AdvReac Type Severity Reaction Status Date / Time Seasonal Allergies: Uncoded Allergy Intermediate SINUS Verified 05/17/24 00:43 PROBLEMS No Known Drug Allergies Allergy Mild none Verified 05/17/24 00:43 Family History Father , age 81 from [place] CVA (cerebral vascular accident) Myocardial infarction CAD (coronary artery disease) Mother Arrhythmia Surgical History History of tubal ligation Stented coronary artery (12/10/15) Social History Smoking Status: Never smoker ROS ROS ED Constitutional Constitutional ED: Denies chills or weight loss Eyes Eyes: Denies change in vision or diplopia ENT ENT ED: Denies ear pain, rhinorrhea or sore throat Cardiovascular Cardiovascular: Denies chest pain, orthopnea, palpitations or racing heartbeat Respiratory/Chest Respiratory/Chest: Denies cough, dyspnea or orthopnea Gastrointestinal Gastrointestinal: Denies abdominal pain, diarrhea, nausea or vomiting Genitourinary Genitourinary ED: Denies dysuria, hematuria or urinary frequency Musculoskeletal Musculoskeletal: Denies arthralgias or myalgias Integumentary Reports other Details: See history of present illness ; Denies abscess or rash Neurologic Neurologic: Denies headache(s) or weakness Psychiatric Psychiatric: Denies anxiety, depression, suicidal ideation or suicidal thoughts Endocrine Endocrinology: Denies polydipsia, polyphagia or polyuria Allergic/Immunologic Allergic/Immunologic ED: Denies mouth swelling, tongue swelling or urticaria EXAM Physical Exam Const Vital Signs: 05/17/24 00:43 05/17/24 01:39 Temperature 97.7 F L 97.8 F Temperature Source Oral Pulse Rate 72 65 Respiratory Rate 18 16 Blood Pressure 187/79 H 153/73 H Blood Pressure Mean 115 99 Pulse Ox 97 95 Oxygen Delivery Method Room Air Positive well nourished, well developed and obese General Appearance ED: well developed and NAD Nutritional Appearance: obese HEENT Reports normocephalic, head/scalp atraumatic and moist mucous membranes Eyes PERRL and EOMs intact bilaterally Neck no lymphadenopathy, supple and no JVD Resp normal respiratory effort and clear to auscultation bilaterally Cardio regular rate, regular rhythm and no murmurs GI normal to inspection, nondistended, normoactive bowel sounds and non-tender Palpation: soft Back/Spine no CVA tenderness and normal ROM Extremity normal to inspection General Extremety ED: Negative for edema General Extremity: Negative for edema Neuro oriented x3 and CN's II-XII intact bilaterally Sensorium / Orientation: alert Motor Exam: strength 5/5 throughout Psych mental status grossly normal Mood & Affect: Negative for depressed or tearful Skin no wounds Skin Narrative: Proximal right anterior thigh demonstrates a tick with about 1 inch of surrounding erythema on both sides. MDM MDM MDM Narrative Medical decision making narrative: Differential diagnosis includes but not limited to the tickborne illnesses retained tick local reaction The area was cleansed with alcohol prep pad. Local 1% lidocaine was used to anesthetize the skin locally. An 18-gauge needle was used to easily remove the tick. Band-Aid was applied. She will be given her first dose of doxycycline here. We did use shared decision making to go ahead and provide coverage for Lyme disease given how pervasive to visit his in our region currently. Patient to monitor for changes return if worsening or concerns History & Record Review Discussion w/independent historian: Patient Discharge Plan Triage Chief Complaint: Wound Check ED Provider: Ranjan Cohen Dx/Rx/DC Orders Clinical Impression: Tick bite with subsequent removal of tick Instructions: ED Tick Bite, Antibiotic Treatment Prescriptions: New doxycycline hyclate 100 mg capsule 100 mg PO DAILY Qty: 13 0RF No Action atorvastatin 40 MG tablet 40 mg PO QHS aspirin 81 MG tablet,delayed release (DR/EC) 81 mg PO DAILY coenzyme Q10 100 MG capsule 100 mg PO DAILY metoprolol tartrate 25 MG tablet 25 mg PO BID Qty: 60 0RF diltiazem HCl 120 mg tablet extended release 24 hr 120 mg PO DAILY Qty: 30 1RF Primary Care Provider: Care Physician,No Primary Referrals: Care Physician,No Primary [Primary Care Provider] - Print Language: [place] Disposition Disposition: Home, Self Care Discharge Date/Time: 05/17/24 01:49
== END 2024-05-17 01:49 | disposition home or self-care (01) ==
PROVIDERS: Emergency Provider Emergency Medicine; Visit Provider Emergency Medicine
DX: S70.361A Insect bite (nonvenomous), right thigh, initial encounter (principal); I25.10 Atherosclerotic heart disease of native coronary artery without angina pectoris; E78.5 Hyperlipidemia, unspecified; I10 Essential (primary) hypertension; E66.9 Obesity, unspecified; W57.XXXA Bitten or stung by nonvenomous insect and other nonvenomous arthropods, initial encounter
CPT/HCPCS: 99282